=== PATIENT | male | born 1955 | race Caucasian/White ===

== ENCOUNTER → 2020-10-03 | Outpatient (CLI) | payer MEDICARE | END | disposition home or self-care (01) | LOC: CFH 14:25 | PROVIDERS: ATTEND Internal Medicine | DX: J43.2 Centrilobular emphysema (principal) | CPT/HCPCS: 71250 ==

== ENCOUNTER 2021-06-06 12:06 | Outpatient (CLI) | payer MEDICARE | END 2021-06-06 23:59 | disposition home or self-care (01) | LOC: CVU 12:06 | PROVIDERS: ATTEND Registered Nurse | DX: I35.8 Other nonrheumatic aortic valve disorders (principal); I42.9 Cardiomyopathy, unspecified | CPT/HCPCS: 93306 ==